=== PATIENT | female | born 1990 | race Caucasian/White ===

== ENCOUNTER 2016-11-18 02:12 | Emergency (ER) | payer SELFPAY ==
[~2016-11-18 02:12] MED LIST: ACETAMINOPHEN PO; CLARITIN10 M2 PO; PRENATAL1 TA1 PO; TUSSIN100 MG/51 PO; ZOFRAN ODT4 MG PO
== END 2016-11-18 02:54 | disposition home or self-care (01) ==
LOC: CFTX 02:12
DX: F10.129 Alcohol abuse with intoxication, unspecified (principal); F31.9 Bipolar disorder, unspecified; F17.210 Nicotine dependence, cigarettes, uncomplicated
CPT/HCPCS: 99282